=== PATIENT | female | born 1985 | race African-American/Black ===

== ENCOUNTER 2018-08-04 10:04 | Emergency (ER) | payer BC ==
[~2018-08-04] VITALS: Ht 172.7 cm; Wt 129.3 kg
--- NOTE | ~2018-08-04 | EKG ---
[place] [address] [address] [facility] [place] [address] ELECTROCARDIOGRAM REPORT Name: EUSEBIA VALDIVIA [id number] Admission: 08/04/18 Attend Phys: Discharge: 08/04/18 Date of : 83 Report #: [id number] THIS REPORT FOR: //name// [facility] ED Test Date: 2018-08-04 Test Time: 10:57:53 Pat Name: EUSEBIA VALDIVIA Department: Room: Gender: F [employer]: KADEEM : 1985 Requested By: Grady Clay Order Number: [id number] MD: Gary Copeland Measurements Intervals [place] Rate: 60 P: 28 ND: 195 QRS: 17 QRSD: 87 T: 9 QT: 394 QTc: 394 Interpretive Statements Sinus rhythm Poor R wave progression No previous ECG available for comparison Electronically Signed On 08-05-2018 8:02:39 CDT by Gary Copeland [email or web address] <ELECTRONICALLY SIGNED> By: Gary Copeland MD, [facility] 08/05/18 [id number] Gary Copeland MD, FACC /EPI
[~2018-08-04 10:04] MED LIST: ADVAIR 250-501 EACH IH; LISINOPRIL-HCT1 EAC1 PO; MAXAIR AUTOHALE14 G1 IH; ZOFRAN ODT4 MG PO
[2018-08-04] MEDS ORDERED: PROAIR HFA8.5 GM INH (10:22)
[2018-08-04 10:25] LABS: URINE BILIRUBIN NEGATIVE (Negative); URINE BLOOD 1+ (Negative); URINE CLARITY SL CLOUDY; URINE COLOR YELLOW; URINE GLUCOSE-RANDOM* NEGATIVE (Negative); URINE KETONES NEGATIVE (Negative); URINE LEUKOCYTES-REFLEX NEGATIVE (Negative); URINE NITRITE-REFLEX NEGATIVE (Negative); URINE PROTEIN (DIPSTICK) NEGATIVE (Negative); URINE SPECIFIC GRAVITY 1.015 (1.005-1.035); URINE UROBILINOGEN 0.2 E.U./dl (0.2-1.0)
[2018-08-04 10:36] LABS: BACTERIA-REFLEX 1-9 Few /HPF (None Seen); SQUAMOUS >10 Many /LPF (0-3); URINE RBC None Seen /HPF (0-2); URINE WBC-REFLEX 0-5 Rare /HPF (0-5)
[2018-08-04 10:37] LABS: AMORPHOUS URATES Moderate /LPF (None Seen); CASTS None Seen /LPF (None Seen)
[2018-08-04 11:00] LABS: ABSOLUTE NEUTROPHILS 3.4 thou/uL (1.4-8.2); BASOPHILS 0.9 % (0.0-2.0); EOSINOPHILS 1.1 % (0.0-3.0); HEMATOCRIT 38.2 % (37.0-47.0); HEMOGLOBIN 13.1 gm/dL (12.0-15.0); LYMPHOCYTES 19.1 % (24.0-44.0); MCHC 34.3 g/dL (28.0-37.0); MCV 93.4 fL (80.0-100.0); MONOCYTES 9.2 % (1.0-8.0); PLATELET COUNT 173 thou/uL (150-400); POLYS 69.7 % (36.0-66.0); RBC 4.08 mil/uL (4.20-5.00); RDW 14.1 % (10.5-14.5); WBC 4.8 thou/uL (4.0-11.0)
[2018-08-04 11:11] LABS: AMP/METHAMP Negative (Negative); BARBITURATES Negative (Negative); BENZODIAZEPINES Negative (Negative); COCAINE Negative (Negative); METHADONE Negative (Negative); OPIATES Negative (Negative); PCP Negative (Negative)
[2018-08-04 11:11] LABS: ANION GAP 9 mmol/L (7-16); BUN 10 mg/dL (7-18); CHLORIDE 105 mmol/L (98-107); CO2 27 mmol/L (21-32); CREATININE 0.8 mg/dL (0.6-1.0); GLUCOSE 97 mg/dL (74-106); SODIUM 141 mmol/L (136-145)
[2018-08-04 11:19] LABS: ALBUMIN 3.4 g/dL (3.4-5.0); PHOSPHORUS 3.3 mg/dL (2.5-4.9); SGOT 17 U/L (15-37); SGPT 22 U/L (30-65); TOTAL BILIRUBIN 0.5 mg/dL (<0.1-1.0); TOTAL PROTEIN 7.6 g/dL (6.4-8.2); TROPONIN-I <0.06 ng/mL (<0.06)
[2018-08-04 11:48] VITALS: BP 156/84
== END 2018-08-04 12:16 | disposition home or self-care (01) ==
LOC: ER 10:04
PROVIDERS: Emergency Medicine
DX: R20.2 Paresthesia of skin (principal); R53.83 Other fatigue; R63.0 Anorexia; I10 Essential (primary) hypertension; J45.909 Unspecified asthma, uncomplicated